=== PATIENT | male | born 1960 | race Hispanic/Latino ===

== ENCOUNTER 2016-09-29 09:12 | Outpatient (CLI) | payer BC ==
[2016-09-29] MEDS ORDERED: XYLOCAINE TOPICAL 2% TP ONE (10:18)
[2016-09-29] MEDS ORDERED: XYLOCAINE TOPICAL 2% ONE (10:18)
== END 2016-09-29 09:13 | disposition home or self-care (01) ==
LOC: WOUND 09:12
PROVIDERS: ATTEND Nurse Practitioner
DX: I87.331 Chronic venous hypertension (idiopathic) with ulcer and inflammation of right lower extremity (principal); L97.811 Non-pressure chronic ulcer of other part of right lower leg limited to breakdown of skin; F32.9 Major depressive disorder, single episode, unspecified; E66.9 Obesity, unspecified; Z68.41 Body mass index [BMI] 40.0-44.9, adult; F17.210 Nicotine dependence, cigarettes, uncomplicated
CPT/HCPCS: 11042; G0463

== ENCOUNTER 2016-10-06 07:52 | Outpatient (CLI) | payer BC ==
[2016-10-06] MEDS ORDERED: XYLOCAINE TOPICAL 4% TP ONE ×2 (08:23→08:29)
== END 2016-10-06 07:53 | disposition home or self-care (01) ==
LOC: WOUND 07:52
PROVIDERS: ATTEND Nurse Practitioner
DX: I87.331 Chronic venous hypertension (idiopathic) with ulcer and inflammation of right lower extremity (principal); L97.811 Non-pressure chronic ulcer of other part of right lower leg limited to breakdown of skin; E66.9 Obesity, unspecified; F17.210 Nicotine dependence, cigarettes, uncomplicated
CPT/HCPCS: 29580; G0463; 99214; G0364

== ENCOUNTER 2016-10-13 07:53 | Outpatient (CLI) | payer BC | END 2016-10-13 07:54 | disposition home or self-care (01) | LOC: WOUND 07:53 | PROVIDERS: ATTEND Nurse Practitioner | DX: I87.331 Chronic venous hypertension (idiopathic) with ulcer and inflammation of right lower extremity (principal); L97.811 Non-pressure chronic ulcer of other part of right lower leg limited to breakdown of skin; E66.9 Obesity, unspecified; F32.9 Major depressive disorder, single episode, unspecified; F17.210 Nicotine dependence, cigarettes, uncomplicated; Z68.41 Body mass index [BMI] 40.0-44.9, adult | CPT/HCPCS: 97597 ==

== ENCOUNTER 2016-10-20 08:00 | Outpatient (CLI) | payer BC | END 2016-10-20 08:01 | disposition home or self-care (01) | LOC: WOUND 08:00 | PROVIDERS: ATTEND Nurse Practitioner | DX: I87.331 Chronic venous hypertension (idiopathic) with ulcer and inflammation of right lower extremity (principal); L97.811 Non-pressure chronic ulcer of other part of right lower leg limited to breakdown of skin; B37.2 Candidiasis of skin and nail; E66.9 Obesity, unspecified; F17.210 Nicotine dependence, cigarettes, uncomplicated | CPT/HCPCS: 99214; G0463 ==

== ENCOUNTER 2016-10-27 08:23 | Outpatient (CLI) | payer BC ==
[2016-10-27] MEDS ORDERED: XYLOCAINE TOPICAL 4% TP ONE ×2 (09:01→09:16)
== END 2016-10-27 08:24 | disposition home or self-care (01) ==
LOC: WOUND 08:23
PROVIDERS: ATTEND Surgery
DX: I87.331 Chronic venous hypertension (idiopathic) with ulcer and inflammation of right lower extremity (principal); L97.811 Non-pressure chronic ulcer of other part of right lower leg limited to breakdown of skin; E66.9 Obesity, unspecified; I10 Essential (primary) hypertension; F32.9 Major depressive disorder, single episode, unspecified; F17.200 Nicotine dependence, unspecified, uncomplicated; I87.2 Venous insufficiency (chronic) (peripheral); B37.2 Candidiasis of skin and nail; Z68.1 Body mass index [BMI] 19.9 or less, adult
CPT/HCPCS: 99214; G0463

== ENCOUNTER 2016-11-11 10:26 | Outpatient (CLI) | payer BC ==
[2016-11-11] MEDS ORDERED: XYLOCAINE TOPICAL 4% TP ONE ×2 (10:57→11:00)
[2016-11-11] MEDS ORDERED: LOTRISONE TP ONE (11:29)
[2016-11-11] MEDS ORDERED: LOTRISONE TP SCH (22:00)
== END 2016-11-11 10:27 | disposition home or self-care (01) ==
LOC: WOUND 10:26
PROVIDERS: ATTEND Podiatrist
DX: I87.331 Chronic venous hypertension (idiopathic) with ulcer and inflammation of right lower extremity (principal); L97.811 Non-pressure chronic ulcer of other part of right lower leg limited to breakdown of skin; F32.9 Major depressive disorder, single episode, unspecified; E66.9 Obesity, unspecified; F17.210 Nicotine dependence, cigarettes, uncomplicated; Z68.41 Body mass index [BMI] 40.0-44.9, adult
CPT/HCPCS: 99214; G0463

== ENCOUNTER 2016-11-17 07:57 | Outpatient (CLI) | payer BC ==
[2016-11-17] MEDS ORDERED: LOTRISONE TP ONE ×2 (08:56→15:30)
[2016-11-17] MEDS ORDERED: XYLOCAINE TOPICAL 4% TP ONE (10:00)
== END 2016-11-17 07:58 | disposition home or self-care (01) ==
LOC: WOUND 07:57
PROVIDERS: ATTEND Nurse Practitioner
DX: I87.331 Chronic venous hypertension (idiopathic) with ulcer and inflammation of right lower extremity (principal); L97.811 Non-pressure chronic ulcer of other part of right lower leg limited to breakdown of skin; E66.9 Obesity, unspecified; F32.9 Major depressive disorder, single episode, unspecified; F17.210 Nicotine dependence, cigarettes, uncomplicated; Z68.41 Body mass index [BMI] 40.0-44.9, adult

== ENCOUNTER 2016-11-24 08:01 | Outpatient (CLI) | payer BC ==
[2016-11-24] MEDS ORDERED: LOTRISONE TP ONE (08:43)
[2016-11-24] MEDS ORDERED: XYLOCAINE TOPICAL 4% TP ONE (09:00)
[2016-11-24] MEDS ORDERED: LOTRISONE TP SCH (10:00)
== END 2016-11-24 08:02 | disposition home or self-care (01) ==
LOC: WOUND 08:01
PROVIDERS: ATTEND Surgery
DX: T78.49XD Other allergy, subsequent encounter (principal); I87.331 Chronic venous hypertension (idiopathic) with ulcer and inflammation of right lower extremity; L97.811 Non-pressure chronic ulcer of other part of right lower leg limited to breakdown of skin; I87.2 Venous insufficiency (chronic) (peripheral); E66.9 Obesity, unspecified; I10 Essential (primary) hypertension; F17.200 Nicotine dependence, unspecified, uncomplicated; X58.XXXD Exposure to other specified factors, subsequent encounter
CPT/HCPCS: 99214; G0463

== ENCOUNTER 2016-12-01 08:01 | Outpatient (CLI) | payer BC ==
[2016-12-01] MEDS ORDERED: XYLOCAINE TOPICAL 4% TP ONE (08:21)
== END 2016-12-01 08:02 | disposition home or self-care (01) ==
LOC: WOUND 08:01
PROVIDERS: ATTEND Nurse Practitioner
DX: I87.331 Chronic venous hypertension (idiopathic) with ulcer and inflammation of right lower extremity (principal); L97.811 Non-pressure chronic ulcer of other part of right lower leg limited to breakdown of skin; E66.9 Obesity, unspecified; F17.210 Nicotine dependence, cigarettes, uncomplicated; Z68.41 Body mass index [BMI] 40.0-44.9, adult
CPT/HCPCS: 99215; G0463

== ENCOUNTER 2016-12-08 07:59 | Outpatient (CLI) | payer BC | END 2016-12-08 08:00 | disposition home or self-care (01) | LOC: WOUND 07:59 | PROVIDERS: ATTEND Nurse Practitioner | DX: I87.331 Chronic venous hypertension (idiopathic) with ulcer and inflammation of right lower extremity (principal); L97.811 Non-pressure chronic ulcer of other part of right lower leg limited to breakdown of skin; E66.9 Obesity, unspecified; F17.210 Nicotine dependence, cigarettes, uncomplicated | CPT/HCPCS: 99214; G0463 ==